=== PATIENT | female | born 2000 | race Caucasian/White ===

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

== ENCOUNTER 2022-05-25 18:39 | Emergency (ER) | payer OTHER ==
[2022-05-25] MEDS ORDERED: Acetaminophen 500 MG TAB ONE (21:22)
[2022-05-25 21:45] LABS: Bacteria/HPF None Seen HPF (None Seen); Bilirubin 1+ (Negative); Blood, Urine 1+ (Negative); Clarity Extra Turbid (Clear); Glucose, Urine (Dipstick) Normal (Negative); Ketone, Urine Trace mg/dL (Negative); Leukocyte 250 Leu/uL (Negative); Nitrite Negative (Negative); Protein, Urine (Dipstick) 50 mg/dL (Neg-Trace); Specific Gravity, Urine 1.043 (1.002-1.036); WBC/HPF Greater than 50 HPF (0-3); pH, Urine 5.5 (5.0-9.0)
[2022-05-25 21:51] LABS: Pregnancy Test - Urine (BHCG) Negative (Negative); Pregu Control Background? CLEAR/WHITE (CLR/WHITE); Pregu Control Bar Appear? YES (CONTROL BAR); Specific Gravity 1.043 (1.002-1.036)
== END 2022-05-25 22:01 | disposition home or self-care (01) ==
LOC: ERS 18:39
DX: N39.0 Urinary tract infection, site not specified (principal)
CPT/HCPCS: 81003; 81015; 81025; 99283

== ENCOUNTER 2023-02-06 18:59 | Emergency (ER) | payer OTHER ==
[2023-02-06 20:45] LABS: Bacteria/HPF 2+ HPF (None Seen); Bilirubin Negative (Negative); Blood, Urine Negative (Negative); CAUTI Indications for Culture Dysuria,urgency,freq; Clarity Clear (Clear); Glucose, Urine (Dipstick) Normal (Negative); Ketone, Urine Negative (Negative); Leukocyte 500 Leu/uL (Negative); Nitrite Negative (Negative); Protein, Urine (Dipstick) 70 mg/dL (Neg-Trace); Specific Gravity, Urine 1.039 (1.002-1.036); Squamous Epithelial 0-3 HPF (0-3)
[2023-02-06 20:46] LABS: Mucous/LPF 1+ LPF (<2+); RBC/HPF 0-3 HPF (0-3)
[2023-02-06 20:47] LABS: Yeast-Budding 1+ HPF (None Seen)
[2023-02-06 20:48] LABS: Urine Culture Reflex Yes Yes
[2023-02-06] MEDS ORDERED: cefTRIAXone (ROCEPHIN) 500 MG VIAL ONE (21:57)
[2023-02-06] MEDS ORDERED: Lidocaine 1% MPF 2 ML VIAL ONE (21:58)
[2023-02-07 13:17] LABS: Chlamydia by PCR, Vaginal Swab Not Detected (NotDetected); GC by PCR, Vaginal Swab Not Detected (NotDetected); Tric.vaginalis PCR,Vaginal Sw Not Detected (NotDetected)
== END 2023-02-06 22:05 | disposition home or self-care (01) ==
LOC: ERS 18:59
DX: N76.0 Acute vaginitis (principal); F17.290 Nicotine dependence, other tobacco product, uncomplicated
CPT/HCPCS: 81001; 87086; 87480; 87491; 87510; 87591; 87660; 87661; 96372; 99283; J0696

== ENCOUNTER 2023-02-14 06:33 | Emergency (ER) | payer OTHER ==
[2023-02-14 07:36] LABS: #Eosinphils 0.2 thou/uL (0.0-0.7); #Monocytes 0.6 thou/uL (0.11-0.59); #Neutrophils 5.2 thou/uL (1.40-6.50); %Basophils 0.3 % (0.0-1.0); %Eosinophils 3.1 % (0.0-10.0); %Lymphocytes 19.4 % (28.0-48.0); %Monocytes 7.7 % (0.0-4.0); %Neutrophils 69.2 % (31.0-61.0); Hematocrit 45.8 % (36.0-47.0); Hemoglobin 15.6 g/dL (12.0-16.0); Mean Corpuscular HGB CONC 34.1 g/dL (32.0-36.0); Mean Corpuscular Volume 88.1 fl (78.0-98.0); Mean Platelet Volume 9.9 fL (7.4-10.4); Platelet Count 212 10x3/uL (130-400); RBC Distribution Width 12.6 % (11.5-14.5); White Blood Cell (WBC) Count 7.5 10x3/uL (4.8-10.8)
[2023-02-14 07:52] LABS: BHCG - Serum Negative (NEGATIVE); Pregs Control Background? CLEAR/WHITE (CLR/WHITE); Pregs Control Bar Appear? YES (CONTROL BAR)
[2023-02-14 07:53] LABS: Acetaminophen Less than 10 mcg/mL (10.0-30.0); Alcohol Less than 10.0 mg/dL (Less than 10); Salicylate Less than 8.0 mg/dL (15.0-30.0)
[2023-02-14 07:57] LABS: Troponin I Less than 0.010 ng/mL (< 0.028)
[2023-02-14 07:59] LABS: ALT (SGPT) 12 U/L (8-55); AST (SGOT) 18 U/L (5-34); Albumin 4.8 g/dL (3.5-5.0); Alkaline Phosphatase 59 U/L (40-100); Anion Gap 15 mmol/L (10-20); BUN (Urea Nitrogen) 10 mg/dL (7.0-18.7); Calc. Creatinine Clearance 0 mL/min (70-130); Carbon Dioxide 22 mmol/L (22-29); Chloride 107 mmol/L (98-107); Estimated GFR 89; Glucose 80 mg/dL (70-105); Potassium 4.2 mmol/L (3.5-5.1); Protein, Total 7.8 g/dL (6.0-8.3); Sodium 140 mmol/L (136-145)
[2023-02-14 09:38] LABS: Bacteria/HPF None Seen HPF (None Seen); Bilirubin Negative (Negative); Blood, Urine Negative (Negative); CAUTI Indications for Culture Alt mental st,lethar; Clarity Clear (Clear); Glucose, Urine (Dipstick) Normal (Negative); Ketone, Urine Greater than 150 mg/dL (Negative); Leukocyte 75 Leu/uL (Negative); Nitrite Negative (Negative); Protein, Urine (Dipstick) 30 mg/dL (Neg-Trace); WBC/HPF 0-3 HPF (0-3)
[2023-02-14 09:50] LABS: Amphetamine Detected (NotDetected); Barbiturates Screen Not Detected (NotDetected); Benzodiazepine Screen Detected (NotDetected); Cocaine Metabolite Screen Not Detected (NotDetected); Methadone Not Detected (NotDetected); Methamphetamine Detected (NotDetected); Opiate Screen Not Detected (NotDetected); Oxycodone Screen Not Detected (NotDetected); Phencyclidine (PCP) Not Detected (NotDetected); THC/Cannabinoid Screen Not Detected (NotDetected); Tricyclic Screen Not Detected (NotDetected); Urine Culture Reflex No No
== END 2023-02-14 11:56 | disposition home or self-care (01) ==
LOC: ERS 06:33
DX: F15.10 Other stimulant abuse, uncomplicated (principal); R55 Syncope and collapse; F17.290 Nicotine dependence, other tobacco product, uncomplicated
CPT/HCPCS: 36415; 71045; 80053; 80306; 80307; 81001; 83605; 83880; 84443; 84484; 84703; 85025; 93005; 96360

== ENCOUNTER 2023-11-25 15:13 | Emergency (ER) | payer BC ==
[2023-11-25] MEDS ORDERED: Ketorolac Tromethamine 30 MG (1 mL) VIAL ONE (16:43)
== END 2023-11-25 16:47 | disposition home or self-care (01) ==
LOC: ERS 15:13
DX: M79.641 Pain in right hand (principal); F17.200 Nicotine dependence, unspecified, uncomplicated; W22.01XA Walked into wall, initial encounter
CPT/HCPCS: 96372; J1885

== ENCOUNTER 2024-05-30 19:43 | Emergency (ER) | payer BC ==
[2024-05-30 20:17] LABS: Pregnancy Test - Urine (BHCG) Negative (Negative); Pregu Control Background? CLEAR/WHITE (CLR/WHITE); Pregu Control Bar Appear? YES (CONTROL BAR)
[2024-05-30 20:22] LABS: Bacteria/HPF None Seen HPF (None Seen); CAUTI Indications for Culture Pelvic or flank pain; Clarity Clear (Clear); Glucose, Urine (Dipstick) Normal (Negative); Ketone, Urine Negative (Negative); Leukocyte Negative Leu/uL (Negative); Protein, Urine (Dipstick) Negative (Neg-Trace); Specific Gravity, Urine 1.009 (1.002-1.036); Squamous Epithelial None Seen HPF (0-3); pH, Urine 6.5 (5.0-9.0)
[2024-05-30 20:24] LABS: Bilirubin Unable to Interpret (Negative); Blood, Urine Trace (Negative); Nitrite Unable to Interpret (Negative); Urobilinogen UNABLE TO INTERPRET mg/dL (Less than 2)
[2024-05-30 20:25] LABS: Specific Gravity 1.009 (1.002-1.036)
[2024-05-30 20:26] LABS: Urine Culture Reflex Yes Yes
[2024-05-30 20:42] LABS: #Basophils Less than 0.03 10x3/uL (0.0-0.2); %Basophils 0.1 % (0.0-1.0); %Eosinophils 5.1 % (0.0-10.0); %Lymphocytes 30.2 % (21.0-51.0); %Monocytes 7.8 % (0.0-10.0); %Neutrophils 56.5 % (42.0-75.0); Hematocrit 40.7 % (36.0-47.0); Hemoglobin 13.2 g/dL (12.0-16.0); Mean Corpuscular HGB CONC 32.4 g/dL (32.0-36.0); Mean Corpuscular Hemoglobin 29.7 pg (27.0-31.0); Mean Corpuscular Volume 91.5 fL (78.0-98.0); Mean Platelet Volume 9.3 fL (7.4-10.4); Platelet Count 258 10x3/uL (130-400); RBC Distribution Width 12.7 % (11.5-14.5); Red Blood Cell (RBC) Count 4.45 mill/uL (4.20-5.40)
[2024-05-30 21:04] LABS: ALT (SGPT) 9 U/L (Less than 34); AST (SGOT) 19 U/L (11-34); Albumin 4.2 g/dL (3.1-4.5); Alkaline Phosphatase 55 U/L (40-110); Anion Gap 11 mmol/L (10-20); BUN (Urea Nitrogen) 11 mg/dL (7.0-18.7); Bilirubin, Total 0.1 mg/dL (0.3-1.2); Calc. Creatinine Clearance 0 mL/min (70-130); Calcium 10.1 mg/dL (7.8-10.44); Carbon Dioxide 25 mmol/L (22-29); Chloride 107 mmol/L (98-107); Estimated GFR 116; Globulin 3.3 g/dL (2.4-3.5); Glucose 105 mg/dL (70-105); Potassium 4.1 mmol/L (3.5-5.1); Protein, Total 7.5 g/dL (6.0-8.3); Sodium 139 mmol/L (136-145)
== END 2024-05-30 22:17 | disposition home or self-care (01) ==
LOC: ERS 19:43
DX: N39.0 Urinary tract infection, site not specified (principal); N76.0 Acute vaginitis; F17.290 Nicotine dependence, other tobacco product, uncomplicated
CPT/HCPCS: 36415; 80053; 81001; 81025; 83605; 85025; 87086; 99283